=== PATIENT | female | born 1965 | race African-American/Black ===

== ENCOUNTER 2023-08-27 15:00 | Emergency (ER) | payer OTHER, SELFPAY ==
[2023-08-27 15:15] VITALS: BP 173/101; PULSE 106; RESP 18; TEMP 37.1; O2SAT 100
[2023-08-27 16:00] LABS: Basophils Percent Auto 0.4 % (0.2-1.2); Eosinophils Absolute Auto 0.2 K/mm3 (0-0.3); Hematocrit 46.1 % (37.0-47.0); Hemoglobin 15.8 g/dL (12.0-15.0); Immature Granulocyte Absolute 0.01 K/mm3 (0.00-0.031); Immature Granulocyte Percent A 0.2 % (0-0.5); Lymphocytes Absolute Auto 1.81 K/mm3 (0.9-3.2); Mean Corpuscular HGB Conc 34.3 g/dl (32-36); Mean Corpuscular Hemoglobin 33.1 pg (26-34); Mean Corpuscular Volume 96.4 fl (80-100); Mean Platelet Volume 9.4 fl (7.4-10.4); Monocytes Absolute Auto 0.4 K/mm3 (0.1-0.6); Neutrophils Absolute Auto 2.2 K/mm3 (1.3-6.7); Neutrophils Percent Auto 47.4 % (45.5-73.1); Platelet Count Result 278 k/mm3 (150-375); Red Blood Count 4.78 M/mm3 (4.2-5.4); Red Cell Distribution Width 12.8 % (11.5-14.5); White Blood Count 4.6 K/mm3 (4.5-10.0)
[2023-08-27 16:06] LABS: Appearance Urine Clear (Clear); Bacteria Urine 1+ /hpf; Bilirubin Urine Negative (Negative); Blood Urine Non-Hemolyzed Trace (Negative); Color Urine Yellow (Yellow); Glucose Urine UA Negative (Negative); Ketones Urine Negative (Negative); Leukocyte Esterase Ur Trace LEU/UL (Negative); Nitrate Urine Negative (Negative); Non Pathogenic Casts 0-2; Protein Urine Negative (Negative); Squamous Epithelial Cell Urine Occasional /hpf (Few); Urobilinogen Urine 0.2 mg/dL (<2.0); WBC Urine 0-5 /hpf (0-3); pH Urine 5.5 (5.0-9.0)
[2023-08-27 16:09] LABS: Ethanol < 10 mg/dL (<10)
[2023-08-27 16:10] LABS: Alanine Aminotransferase 12 U/L (6-35); Albumin Level 4.4 g/dL (3.5-5.1); Alkaline Phosphatase 86 U/L (38-126); Anion Gap 5 mmol/L (4-12); Aspartate Amino Transferase 21 U/L (14-36); Bilirubin,Total 0.5 mg/dL (0.2-1.3); Blood Urea Nitrogen 7 mg/dL (7-17); Calcium 10.5 mg/dL (8.4-10.2); Carbon Dioxide 28 mmol/L (22-30); Chloride 104 mmol/L (98-107); Estimated CRCL calculation 65 ml/min; Estimated Glomerular Filt Rate > 60; Glucose 113 mg/dL (65-110); Potassium 4.7 mmol/L (3.4-5.0); Sodium 137 mmol/L (137-145)
[2023-08-27 16:12] LABS: Add Urine Microscopic? YES
[2023-08-27 16:20] LABS: Amphetamine Screen Urine Negative (Negative); Barbiturate Screen Urine Negative (Negative); Benzodiazepines Screen Urine Negative (Negative); Cannabinoid Screen Urine Negative (Negative); Cocaine Screen Urine Negative (Negative); Methadone Screen Urine Negative (Negative); Opiate Screen Urine Negative (Negative); Phencyclidine Screen Urine Negative (Negative)
[2023-08-27 16:38] LABS: Influenza A QL RT-PCR Negative (Negative); Influenza B QL RT-PCR Negative (Negative); RSV RNA, RT-PCR Negative (Negative); SARS-CoV-2 RNA PCR Negative (Negative)
--- NOTE | 2023-08-27 16:48 | PC.NURSE ---
spoke with pts nephew who states that pt has schizophrenia. He states that she has these kind of episodes a couple times a year. He states he will come and pick her up
--- NOTE | 2023-08-27 18:05 | ED.GENADULT ---
HPI - General Adult General Chief complaint: Unspecified Stated complaint: unspecified Time Seen by Provider: 08/27/23 15:05 Source: patient Mode of arrival: EMS Limitations: no limitations History of Present Illness HPI narrative: 58-year-old with a history of hypertension, schizophrenia was brought in by EMS from [place] . Patient states that she was supposed to meet Jeevan Banegas at [place] and he did not show up . she states she spoke to him yesterday . Patient presently has no medical complaints. As per her nephew she has underlying schizophrenia and was admitted to [facility] for psychotic episodes in the past Onset (ago): hour(s) (2) Related Data Home Medications Medication Instructions Recorded Confirmed amlodipine 5 mg tablet 5 mg PO 08/27/23 atorvastatin 10 mg tablet 10 mg PO 08/27/23 cyanocobalamin (vitamin B-12) 1,000 mcg subcut 08/27/23 1,000 mcg/mL injection solution Allergies Allergy/AdvReac Type Severity Reaction Status Date / Time No Known Allergies Allergy Verified 08/27/23 15:22 Review of Systems Review of Systems: ROS unobtainable: Yes unobtainable due to mental status Exam Narrative: GENERAL: Well-appearing, well-nourished, and in no acute distress. HEAD: Normocephalic, atraumatic. EYES: PERRLA and EOMI. ENT: Nares clear, no rhinorrhea or epistaxis. Mucous membranes moist. NECK: Supple. CHEST: Clear to auscultation. No respiratory distress. HEART: Regular rate and rhythm. No murmur heard. Normal peripheral pulses. ABDOMEN: Soft, nontender, nondistended, normal active bowel sounds. EXTREMITIES: Normal range of motion. No edema. SKIN: Warm, dry, no rash. NEURO: No focal deficits. Alert and oriented x3. PSYCH: Normal mood and affect. Course Course Emergency Course: We did contact her nephew , he was not too surprised it will come pick her up. Patient is not suicidal or homicidal. Vital Signs Vital signs: Vital Signs Temperature 37.1 C 08/27/23 15:15 Pulse Rate 106 H 08/27/23 15:15 Respiratory Rate 18 08/27/23 15:15 Blood Pressure 173/101 H 08/27/23 15:15 Pulse Oximetry 100 08/27/23 15:15 Oxygen Delivery Room Air 08/27/23 15:15 Temperature 37.1 C 08/27/23 15:15 Pulse Rate 106 H 08/27/23 15:15 Respiratory Rate 18 08/27/23 15:15 Blood Pressure 173/101 H 08/27/23 15:15 Pulse Oximetry 100 08/27/23 15:15 Oxygen Delivery Room Air 08/27/23 15:15 Medical Decision Making Vital Signs Vital Signs: Vital Signs Temperature 37.1 C 08/27/23 15:15 Pulse Rate 106 H 08/27/23 15:15 Respiratory Rate 18 08/27/23 15:15 Blood Pressure 173/101 H 08/27/23 15:15 Pulse Oximetry 100 08/27/23 15:15 Oxygen Delivery Room Air 08/27/23 15:15 Temperature 37.1 C 08/27/23 15:15 Pulse Rate 106 H 08/27/23 15:15 Respiratory Rate 18 08/27/23 15:15 Blood Pressure 173/101 H 08/27/23 15:15 Pulse Oximetry 100 08/27/23 15:15 Oxygen Delivery Room Air 08/27/23 15:15 Lab Data 08/27/23 15:46 08/27/23 15:46 Labs: Lab Results 08/27/23 08/27/23 Range/Units 15:46 15:50 WBC 4.6 (4.5-10.0) K/mm3 RBC 4.78 (4.2-5.4) M/mm3 Hgb 15.8 H (12.0-15.0) g/dL Hct 46.1 (37.0-47.0) % MCV 96.4 (80-100) fl MCH 33.1 (26-34) pg MCHC 34.3 (32-36) g/dl RDW 12.8 (11.5-14.5) % Plt Count 278 (150-375) k/mm3 MPV 9.4 (7.4-10.4) fl Immature Gran % (Auto) 0.2 (0-0.5) % Neut % (Auto) 47.4 (45.5-73.1) % Lymph % (Auto) 39.0 (18.3-44.2) % [place] % (Auto) 8.0 (2.6-8.5) % Eos % (Auto) 5.0 H (0-4.4) % Baso % (Auto) 0.4 (0.2-1.2) % Lymph # (Auto) 1.81 (0.9-3.2) K/mm3 [place] # (Auto) 0.4 (0.1-0.6) K/mm3 Eos # (Auto) 0.2 (0-0.3) K/mm3 Baso # (Auto) 0.0 (0.0-0.1) K/mm3 Abs Immat Gran (auto) 0.01 (0.00-0.031) K/mm3 Absolute Neuts (auto) 2.2 (1.3-6.7) K/mm3 Absolute Nucleated RBC 0.000 (0.0-0.012) K/mm3 Nucleated RBC % 0.0
[2023-08-27 18:12] VITALS: BP 157/88; PULSE 98; RESP 18; O2SAT 99
== END 2023-08-27 18:21 | disposition home or self-care (01) ==
PROVIDERS: Emergency Provider Family Medicine
DX: R41.0 Disorientation, unspecified (principal); F20.9 Schizophrenia, unspecified; I10 Essential (primary) hypertension; Z11.52 Encounter for screening for COVID-19
CPT/HCPCS: 36415; 80053; 80307; 81001; 84443; 85025; 87637; 99283